=== PATIENT | female | born 1975 | race Caucasian/White ===

== ENCOUNTER 2025-05-24 15:01 | Emergency (ER) | payer OTHER ==
[~2025-05-24 15:01] MED LIST: Iopamidol 370 76% 100 ML VIAL ONE
[2025-05-24 15:20] LABS: Glucose, Urine (Dipstick) Negative (Negative); Leukocyte Trace (Negative); Protein, Urine (Dipstick) 100 mg/dL (Neg-Trace); Specific Gravity, Urine 1.020 (1.005-1.030)
[2025-05-24 15:29] LABS: Bacteria/HPF Rare-Few HPF (None Seen); CAUTI Indications for Culture Pelvic or flank pain; RBC/HPF 0-3 HPF (0-3); Urine Culture Reflex No No
[2025-05-24] MEDS ORDERED: cloNIDine 0.1 MG TAB ONE (15:49)
[2025-05-24] MEDS ORDERED: Ketorolac Tromethamine 30 MG (1 mL) VIAL ONE (15:50)
[2025-05-24 16:06] LABS: ALT (SGPT) 8 U/L (Less than 34); AST (SGOT) 11 U/L (11-34); Albumin 3.5 g/dL (3.1-4.5); Alkaline Phosphatase 109 U/L (40-110); Anion Gap 19 mmol/L (10-20); BUN (Urea Nitrogen) 10 mg/dL (9.8-20.1); Bilirubin, Total 0.8 mg/dL (0.3-1.2); Calc. Creatinine Clearance 0 mL/min (70-130); Calcium 8.8 mg/dL (7.8-10.44); Carbon Dioxide 20 mmol/L (22-29); Chloride 102 mmol/L (98-107); Globulin 3.5 g/dL (2.4-3.5); Glucose 106 mg/dL (70-105); Potassium 4.0 mmol/L (3.5-5.1); Sodium 137 mmol/L (136-145)
[2025-05-24 16:09] LABS: Hematocrit 26.8 % (36.0-47.0); Hemoglobin 7.1 g/dL (12.0-16.0); Mean Corpuscular Hemoglobin 15.5 pg (27.0-31.0); Mean Corpuscular Volume 58.3 fl (78.0-98.0); Platelet Count 435 10x3/uL (130-400); Red Blood Cell (RBC) Count 4.59 mill/uL (4.20-5.40); White Blood Cell (WBC) Count 20.0 10x3/uL (4.8-10.8)
[2025-05-24 16:22] LABS: MDiff Complete? YES; Manual Diff?? YES
[2025-05-24 16:23] LABS: Anisocytosis SLIGHT = 6-15 cells (100X) (0-5/hpf); Microcytosis MARKED = >30 cells (100X) (0-5/hpf); Platelet Adequacy Comment Appears Increased; Poikilocytosis SLIGHT = 6-15 cells (100X) (0-5/hpf); Polychromasia SLIGHT = 2-3 cells (100X) (0-2/hpf)
[2025-05-24 16:30] LABS: Pregnancy Test - Urine (BHCG) Negative (Negative); Pregu Control Background? CLEAR/WHITE (CLR/WHITE); Pregu Control Bar Appear? YES (CONTROL BAR)
[2025-05-24] MEDS ORDERED: Amoxicillin/Potassium Clav 875 MG TAB ONE (17:33)
== END 2025-05-24 17:55 | disposition home or self-care (01) ==
LOC: MADERS 15:01
DX: K57.32 Diverticulitis of large intestine without perforation or abscess without bleeding (principal); I31.39 Other pericardial effusion (noninflammatory); N20.0 Calculus of kidney; D50.9 Iron deficiency anemia, unspecified; N85.8 Other specified noninflammatory disorders of uterus; R31.29 Other microscopic hematuria; R80.9 Proteinuria, unspecified; R18.8 Other ascites; R79.89 Other specified abnormal findings of blood chemistry; I10 Essential (primary) hypertension; Z91.148 Patient's other noncompliance with medication regimen for other reason
CPT/HCPCS: 71275; 74174; 80053; 81001; 81025; 83605; 85025; 85379; 94760; 96374; J1885; J7120; Q9967